=== PATIENT | male | born 1955 | race Caucasian/White ===

== ENCOUNTER 2018-07-11 10:32 | Outpatient (CLI) | payer BC ==
[~2018-07-11] VITALS: Ht 213.4 cm; Wt 56.4 kg
[2018-07-11 11:12] LABS: BASOPHILS 0 % (0-2); EOSINOPHILS 0.4 % (0-7); HEMOGLOBIN 13.3 g/dL (13.5-17.5); IMMATURE GRANULOCYTES 0.2 % (0-5); LYMPHOCYTES 18.2 % (15-50); MCV 91.3 fL (80.0-100.0); MEAN PLATELET VOLUME 10.2 fL (7.4-10.4); MONOCYTES 10.8 % (2-11); NEUTROPHILS 70.4 % (40-80); PLATELET COUNT 239 10x3/uL (130-400); RBC 4.16 10x6/uL (4.20-6.10); RDW 12.8 % (11.5-14.5); WBC 4.9 10x3/uL (4.8-10.8)
[2018-07-11 11:34] LABS: CALC OSMOLALITY 268 mosm/kg (275-300); CALCIUM 8.7 mg/dL (8.5-10.1); CARBON DIOXIDE 27.7 mmol/L (21.0-32.0); CHLORIDE - SERUM 101 mmol/L (98-107); CREATININE - SERUM 0.7 mg/dL (0.6-1.3); GLUCOSE 129 mg/dL (74-106); POTASSIUM - SERUM 4.6 mmol/L (3.5-5.1); SODIUM 134 mmol/L (136-145); UREA NITROGEN 9 mg/dL (7-18); eGFR NON AFRICAN AMERICAN > 90 mL/min (90-120)
[2018-07-11 11:34] LABS: APTT 30.9 SECONDS (22.8-39.4); INR 1.13 (0.85-1.17); PROTIME 14.1 SECONDS (11.6-15.0)
[2018-07-11] MEDS ORDERED: OXYCONTIN10 MG PO (12:28)
[2018-07-11] MEDS ORDERED: ZOFRAN4 MG PO (12:29)
[2018-07-11] MEDS ORDERED: MILK OF MAGNESI30 ML PO (12:30)
[2018-07-11] MEDS ORDERED: COLACE100 MG PO (12:30)
[2018-07-11 12:56] VITALS: BP 104/61; Ht 213.4 cm; Wt 56.4 kg
== END 2018-07-11 18:45 | disposition home or self-care (01) ==
LOC: D.CT 10:32
PROVIDERS: General Practice
DX: C25.1 Malignant neoplasm of body of pancreas (principal)